=== PATIENT | female | born 1975 ===

== ENCOUNTER 2019-02-27 16:33 | Emergency (ER) | payer OTHER ==
[2019-02-27 16:41] VITALS: BP 132/69; PULSE 96; RESP 16; TEMP 98.4; O2SAT 100
[2019-02-27] MEDS ORDERED: Morphine 4 MG/ML VIAL ONE (17:34)
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
[2019-02-27] MEDS ORDERED: Fluorescein 1 mg Ophthalmic Strip OS ONE (20:37)
[2019-02-27] MEDS ORDERED: Tetracaine 0.5% Ophth 2 ML BOTTLE OS ONE (20:37)
[2019-02-27] MEDS ORDERED: Fluorescein 1 mg Ophthalmic Strip ONE (20:41)
[2019-02-27] MEDS ORDERED: Tetracaine 0.5% Ophth 2 ML BOTTLE ONE (20:44)
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
--- NOTE | 2019-02-28 12:35 | RAD ---
Date of service: 02/27/2019 PROCEDURE: Radiographs of the pelvis. HISTORY: lower back pain COMPARISON: None. TECHNIQUE: 1 view obtained. FINDINGS: BONES: The pelvic ring is intact. No acute displaced fracture or bone destruction. Bone alignment is normal. JOINTS: The hip joint spaces are preserved. The sacroiliac joints are normal. There is mild osteitis pubis. OTHER FINDINGS: There are small phleboliths in the pelvis. IMPRESSION: No acute displaced fracture or dislocation.
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
== END 2019-02-27 21:15 | disposition home or self-care (01) ==
LOC: H.ER 16:33
DX: S39.012A Strain of muscle, fascia and tendon of lower back, initial encounter (principal); S16.1XXA Strain of muscle, fascia and tendon at neck level, initial encounter; V43.62XA Car passenger injured in collision with other type car in traffic accident, initial encounter; Y92.410 Unspecified street and highway as the place of occurrence of the external cause
CPT/HCPCS: 72100; 72125; 72170; 72220; 81025; 96372; 99283; J1885; J2270